=== PATIENT | male | born 1960 | race Caucasian/White ===

== ENCOUNTER 2023-11-20 11:33 | Emergency (ER) | payer OTHER ==
[~2023-11-20] VITALS: Ht 185.4 cm; Wt 100.0 kg
[2023-11-20 11:37] VITALS: TEMP 98.2
[2023-11-20 11:50] LABS: COVID AG,FIA SOURCE NASAL SWAB
[2023-11-20 12:04] LABS: BASOPHILS % (AUTO) 0.8 % (0.0-2.0); HEMATOCRIT 40.2 % (41-53); HEMOGLOBIN 13.8 g/dL (13.5-17.5); LYMPHOCYTES # (AUTO) 1.2 K/uL (1.0-4.8); LYMPHOCYTES % (AUTO) 12.2 % (22.0-44.0); MEAN CORPUSCULAR HEMOGLOBIN 32.3 pg (26.0-34.0); MEAN CORPUSCULAR HGB CONC 34.2 G/dL (31.0-37.0); MEAN CORPUSCULAR VOLUME 94 fL (80-100); MONOCYTES # (AUTO) 1.5 K/uL (0.1-1.0); MONOCYTES % (AUTO) 15.1 % (2.0-9.0); NEUTROPHILS # (AUTO) 6.9 K/uL (1.8-7.7); NEUTROPHILS % (AUTO) 70.9 % (40.0-70.0); PLATELET COUNT (AUTO) 269 K/uL (150-450); RED BLOOD CELL COUNT(AUTO) 4.26 MIL/uL (4.50-5.90); RED CELL DISTRIBUTION WIDTH 14.6 % (11.5-14.5); WHITE BLOOD COUNT (AUTO) 9.7 K/uL (4.5-11.0)
[2023-11-20 12:11] LABS: INFLUENZA TYPE A NEGATIVE FOR TYPE A (NEGATIVE); INFLUENZA TYPE B NEGATIVE FOR TYPE B (NEGATIVE); SARS-COV2 (COVID) ANTIGEN,FIA Negative (Negative)
[2023-11-20 12:20] LABS: ANION GAP 13 mmol/L (8-16); CALCIUM, TOTAL 8.6 mg/dL (8.8-10.5); CARBON DIOXIDE 21 mmol/L (22-29); CHLORIDE 102 mmol/L (98-107); CREATININE 1.14 mg/dL (0.60-1.30); GLOMERULAR FILTR. RATE CALC > 60 mL/min (>60); GLUCOSE,RANDOM 113 mg/dL (70-110); POTASSIUM 3.3 mmol/L (3.5-5.1); SODIUM SERUM 136 mmol/L (136-145); UREA NITROGEN, BLOOD 12 mg/dL (7-18)
[2023-11-20 12:23] LABS: TROPONIN I-HIGH SENSITIVITY 8 ng/L (<76)
[2023-11-20 12:25] LABS: ALANINE AMINOTRANSFERASE 44 U/L (12-78); ALBUMIN 2.7 g/dL (3.4-5.0); ALKALINE PHOSPHATASE 52 U/L (46-116); ASPARTATE AMINOTRANSFERASE 49 U/L (15-37); BILIRUBIN,TOTAL 0.5 mg/dL (0.1-1.0); TOTAL PROTEIN, SERUM 7.2 g/dL (6.4-8.2)
[2023-11-20 12:29] LABS: B-TYPE NATRIURETIC PEPTIDE 78 pg/mL (0-100)
[2023-11-20] MEDS ORDERED: AZITHROMYCIN 500 MG/NS 250 ML IV ONE (15:00)
[2023-11-20] MEDS ORDERED: ALBUTEROL SULFATE 2.5 MG/0.5 ML NEB SOLUTION NEB ONE (15:00)
[2023-11-20] MEDS ORDERED: IPRATROPIUM BROMIDE 0.5 MG/2.5 ML NEB SOLUTION NEB ONE ×2 (15:00→15:45)
[2023-11-20] MEDS ORDERED: CefTRIAXone 1 GM/DEXTROSE 50 ML IV ONE (15:00)
[2023-11-20] MEDS ORDERED: MethylPREDNISolone SOD SUCC 125 MG/2 ML VIAL IVP ONE (15:00)
[2023-11-20 15:17] VITALS: PULSE 102; RESP 18; O2SAT 95
[2023-11-20 15:33] VITALS: PULSE 100; RESP 18; O2SAT 100
[2023-11-20] MEDS ORDERED: ALBUTEROL SULFATE 2.5 MG/0.5 ML 5 ML NEB SOLUTION NEB ONE (15:45)
[2023-11-20 15:46] VITALS: PULSE 100; RESP 18; O2SAT 94
[2023-11-20] MEDS ORDERED: ONDA-104 PO (16:05)
[2023-11-20] MEDS ORDERED: AZIT250T9 PO (16:05)
[2023-11-20] MEDS ORDERED: ALBU18HF12 IH (16:05)
[2023-11-20] MEDS ORDERED: GUAIFDM PO (16:05)
[2023-11-20] MEDS ORDERED: PRED-554 PO (16:05)
[2023-11-20 16:51] VITALS: PULSE 117; RESP 18; O2SAT 95
[2023-11-20 17:08] VITALS: BP 134/107; PULSE 111; RESP 18
== END 2023-11-20 17:08 | disposition left against medical advice (07) ==
LOC: EMS 11:33
DX: J10.00 Influenza due to other identified influenza virus with unspecified type of pneumonia (principal); E11.9 Type 2 diabetes mellitus without complications; I10 Essential (primary) hypertension; F17.210 Nicotine dependence, cigarettes, uncomplicated; Z98.890 Other specified postprocedural states
CPT/HCPCS: 99291; 96365; 71045; 96375; 87426; 80053; 82962; 83880; 84484; 85025; 87804; 36415; 94644; 93005; 96368; J0456; J0696; J2930; Q9967; 94640; J7613

== ENCOUNTER 2023-11-26 11:24 | Emergency (ER) | payer OTHER ==
[~2023-11-26] VITALS: Ht 172.7 cm; Wt 97.0 kg
[~2023-11-26 11:24] MED LIST: ALBU18HF12 IH; AZIT250T9 PO; GUAIFDM PO; ONDA-104 PO; PRED-554 PO
[2023-11-26] MEDS ORDERED: EMPA10TA3 PO (11:41)
[2023-11-26] MEDS ORDERED: LEVO88CA4 PO (11:41)
[2023-11-26] MEDS ORDERED: ATOR-2 PO (11:41)
[2023-11-26] MEDS ORDERED: SITA100 PO (11:41)
[2023-11-26] MEDS ORDERED: TICA90TA PO (11:41)
[2023-11-26] MEDS ORDERED: LISI40TA9 PO (11:41)
[2023-11-26] MEDS ORDERED: METF-446 PO (11:41)
[2023-11-26] MEDS ORDERED: BENZ100C68 PO ×2 (11:41→17:24)
[2023-11-26] MEDS ORDERED: ASPI-1444 PO (11:41)
[2023-11-26 11:49] VITALS: TEMP 98.1
[2023-11-26 12:17] LABS: COVID AG,FIA SOURCE NASAL SWAB
[2023-11-26 12:37] LABS: SARS-COV2 (COVID) ANTIGEN,FIA Negative (Negative)
[2023-11-26 12:38] LABS: INFLUENZA TYPE A NEGATIVE FOR TYPE A (NEGATIVE); INFLUENZA TYPE B NEGATIVE FOR TYPE B (NEGATIVE)
[2023-11-26 15:14] VITALS: PULSE 90; RESP 20; O2SAT 96
[2023-11-26] MEDS ORDERED: PredniSONE 20 MG TABLET PO ONE (15:15)
[2023-11-26] MEDS ORDERED: IPRATROPIUM BROMIDE 0.5 MG/2.5 ML NEB SOLUTION NEB ONE (15:15)
[2023-11-26] MEDS ORDERED: ALBUTEROL SULFATE 2.5 MG/0.5 ML NEB SOLUTION NEB ONE (15:15)
[2023-11-26 15:23] LABS: CALCIUM, TOTAL 9.8 mg/dL (8.8-10.5); CREATININE 1.31 mg/dL (0.60-1.30); POTASSIUM 4.2 mmol/L (3.5-5.1)
[2023-11-26 15:29] VITALS: PULSE 90; RESP 20; O2SAT 98
[2023-11-26 15:31] LABS: TROPONIN I-HIGH SENSITIVITY 5 ng/L (<76)
[2023-11-26 15:32] LABS: BASOPHILS % (AUTO) 0.1 % (0.0-2.0); EOSINOPHILS % (AUTO) 0.9 % (1.0-6.0); HEMATOCRIT 48.8 % (41-53); HEMOGLOBIN 16.6 g/dL (13.5-17.5); LYMPHOCYTES # (AUTO) 2.2 K/uL (1.0-4.8); LYMPHOCYTES % (AUTO) 15.1 % (22.0-44.0); MEAN CORPUSCULAR HEMOGLOBIN 32.2 pg (26.0-34.0); MEAN CORPUSCULAR HGB CONC 33.9 G/dL (31.0-37.0); MEAN CORPUSCULAR VOLUME 95 fL (80-100); MONOCYTES # (AUTO) 1.2 K/uL (0.1-1.0); NEUTROPHILS # (AUTO) 11.1 K/uL (1.8-7.7); NEUTROPHILS % (AUTO) 75.9 % (40.0-70.0); PLATELET COUNT (AUTO) 397 K/uL (150-450); RED BLOOD CELL COUNT(AUTO) 5.15 MIL/uL (4.50-5.90); RED CELL DISTRIBUTION WIDTH 14.3 % (11.5-14.5); WHITE BLOOD COUNT (AUTO) 14.7 K/uL (4.5-11.0)
[2023-11-26 15:37] LABS: D-DIMER 0.54 mg/L FEU (0.00-0.50); INR 1.1 (0.9-1.1); PROTHROMBIN TIME 11.8 SEC (9.4-11.6)
[2023-11-26 15:47] LABS: ALBUMIN 3.4 g/dL (3.4-5.0); BILIRUBIN,TOTAL 0.6 mg/dL (0.1-1.0); TOTAL PROTEIN, SERUM 7.5 g/dL (6.4-8.2)
[2023-11-26 16:04] LABS: APPEARANCE,URINE CLEAR (CLEAR); BILIRUBIN,URINE NEGATIVE (NEGATIVE); COLOR,URINE LIGHT YELLOW (YELLOW); GLUCOSE, URINE (UA) >=1000 mg/dL (NEGATIVE); KETONES,URINE NEGATIVE (NEGATIVE); LEUKOCYTE ESTERASE ,URINE NEGATIVE (NEGATIVE); NITRATE,URINE NEGATIVE (NEGATIVE); OCCULT BLOOD,URINE NEGATIVE (NEGATIVE); PH,URINE 5.5 (5.0-8.0); PROTEIN,URINE NEGATIVE (NEGATIVE); SPECIFIC GRAVITIY, URINE 1.021 (1.003-1.030); UROBILINOGEN,URINE <=1.0 mg/dL (<=1.0)
[2023-11-26 16:46] LABS: BACTERIA,URINE None Seen /HPF (None Seen); RBC,URINE None Seen /HPF (0-2); WBC,URINE 0-2 /HPF (0-5)
[2023-11-26 17:15] VITALS: BP 150/70; PULSE 88; RESP 20
[2023-11-26] MEDS ORDERED: PRED-554 PO (17:24)
[2023-11-26] MEDS ORDERED: AZIT250T9 PO (17:24)
== END 2023-11-26 17:33 | disposition home or self-care (01) ==
LOC: EMS 11:24
DX: J44.9 Chronic obstructive pulmonary disease, unspecified (principal); E11.9 Type 2 diabetes mellitus without complications; E78.00 Pure hypercholesterolemia, unspecified; I10 Essential (primary) hypertension; E03.9 Hypothyroidism, unspecified; F17.210 Nicotine dependence, cigarettes, uncomplicated; Z98.890 Other specified postprocedural states; Z20.822 Contact with and (suspected) exposure to COVID-19
CPT/HCPCS: 99285; 71045; 87426; 80053; 81001; 82550; 83880; 84484; 85025; 85379; 85610; 85730; 87804; 36415; 94640; 93005; J7512; 81003; J7613

== ENCOUNTER 2025-09-15 17:22 | Emergency (ER) | payer OTHER ==
[~2025-09-15] VITALS: Ht 182.9 cm; Wt 104.5 kg
[~2025-09-15 17:22] MED LIST changes: +ASPI-1444 PO; +ATOR-2 PO; -AZIT250T9 PO; +BENZ100C68 PO; +EMPA10TA3 PO; -GUAIFDM PO; +LEVO88CA5 PO; +LISI-1024 PO; +METF-446 PO; -ONDA-104 PO; +SITA100 PO; +TICA90TA PO
[2025-09-15 17:26] VITALS: BP 173/72; PULSE 96; RESP 18; TEMP 98.1; O2SAT 99
[2025-09-15] MEDS ORDERED: SULF1TAB94 PO (17:52)
[2025-09-15] MEDS ORDERED: ACET-3385 PO (17:52)
[2025-09-15] MEDS ORDERED: CEPH-558 PO (17:52)
[2025-09-15] MEDS: CEPHALEXIN MONOHYDRATE 500 MG CAPSULE PO ONE (18:01)
[2025-09-15] MEDS: SULFAMETHOX/TRIMETH DS 800-160 MG/TABLET PO ONE (18:02)
== END 2025-09-15 18:04 | disposition home or self-care (01) ==
LOC: EMS 17:24
DX: L03.116 Cellulitis of left lower limb (principal); E03.9 Hypothyroidism, unspecified; E11.9 Type 2 diabetes mellitus without complications; E78.00 Pure hypercholesterolemia, unspecified; I10 Essential (primary) hypertension; F17.210 Nicotine dependence, cigarettes, uncomplicated; Z79.52 Long term (current) use of systemic steroids; Z79.82 Long term (current) use of aspirin; Z86.73 Personal history of transient ischemic attack (TIA), and cerebral infarction without residual deficits; Z79.890 Hormone replacement therapy; Z79.899 Other long term (current) drug therapy; Z98.890 Other specified postprocedural states
CPT/HCPCS: 82962; 99283